=== PATIENT | female | born 2000 | race Caucasian/White ===

== ENCOUNTER 2021-06-22 19:41 | Outpatient (REF) | payer MEDICAID, SELFPAY ==
[2021-06-24 15:00] LABS: Chlamydia Result Negative (Negative); GC Result Negative (Negative)
== END 2021-06-22 19:42 | disposition home or self-care (01) ==
LOC: LBN 19:41
PROVIDERS: Visit Provider Physician Assistant
DX: N89.8 Other specified noninflammatory disorders of vagina (principal)
CPT/HCPCS: 87491; 87591; 87480; 87510; 87660

== ENCOUNTER 2021-06-22 20:12 | Emergency (ER) | payer MEDICAID, SELFPAY ==
[2021-06-22 20:21] VITALS: BP 123/69; PULSE 94; RESP 18; TEMP 37.1; O2SAT 98
--- NOTE | 2021-06-22 20:30 | DI.CT_ITS ---
Exam(s) CT ABDOMEN PELVIS W EXAM: CT ABDOMEN PELVIS W CLINICAL HISTORY: RUQ and mid right sided pain TECHNIQUE: Imaging Protocol: Axial computed tomography images with coronal and sagittal reformatted images were created and reviewed CONTRAST MATERIAL: Intravenous: Omnipaque 350 Contrast volume:94 mL Oral: No COMPARISON: No exams were available for comparison FINDINGS: ABDOMEN: Lung Bases: Normal where visualized. Liver: Normal density. No measurable mass. Portal, Superior Mesenteric, and Splenic Veins: Unremarkable. Gallbladder and Biliary Tract: The gallbladder is not distended. There is mild thickening of the wal l of the gallbladder which may be due to underdistention. No pericholecystic fluid, cholelithiasis o r biliary ductal dilatation is present. Pancreas: Normal density, no abnormal calcifications or inflammatory process. Spleen: Normal. Adrenals: No masses seen. Kidneys: Normal size, contour and axis. No radiodense stones or obstructive uropathy. No masses seen. Abdominal Aorta: Abdominal portion non-dilated. Bowel: No obstruction or bowel wall thickening. No evidence of acute appendicitis. Peritoneal Cavity: No ascites, collection or mesenteric inflammatory response. No free air. Lymph Nodes: Within normal limits. Bones: Within normal limits for the patient's age. Soft Tissues: Unremarkable. PELVIS: Bladder: Symmetric distention, no gross wall thickening. Reproductive Organs: There is an IUD in position within the uterus. Lymph Nodes: Within normal limits. Bones: Within normal limits for the patient's age. IMPRESSION: 1. No evidence of acute appendicitis. 2. Mild gallbladder wall thickening. This may be due to underdistention. No evidence of cholelithia sis, biliary ductal dilatation or pericholecystic fluid. If there is concern for gallbladder patholo gy such as cholecystitis, gallbladder ultrasound should be obtained. RADIATION DOSE DELIVERED: 638.6mGy.cm Total DLP DATA REPOSITORY: All CT scans at this facility are submitted to the National Radiology Data Registry (NRDR) Dose Index Registry (DIR) with the [employer] ([employer]). RADIATION OPTIMIZATION: All CT scans at this facility use at least one of these dose optimization te chniques: automated exposure control; mA and/or kV adjustment per patient size (includes targeted exa ms where dose is matched to clinical indication); or iterative reconstruction.
--- NOTE | 2021-06-22 20:31 | ED.GENADUL_ITS ---
Discharge Plan Disposition Patient Disposition: HOME Condition: Stable Discharge Details Clinical Impression: Right sided abdominal pain, Nausea Primary Care Provider: Unknown,Unknown ED Provider: Afsaneh Delgado Home Meds and New Rx's Prescriptions: New ondansetron 4 mg tablet,disintegrating 4 mg PO Q6H PRN (Reason: nausea and vomiting) Qty: 10 0RF Continued venlafaxine 150 mg capsule,extended release 24hr 150 mg PO DAILY 0RF divalproex 125 mg tablet,delayed release (DR/EC) 125 mg PO TID 0RF hydroxyzine HCl 10 mg tablet 10 mg PO QHS 0RF cholecalciferol (vitamin D3) 1,250 mcg (50,000 unit) tablet 1,250 mcg PO QWEEK 0RF No Action magnesium citrate Solution 150 ml PO ONCE Qty: 296 0RF Rx Instructions: as a single dose bisacodyl [Dulcolax (bisacodyl)] 10 mg suppository 10 mg OR DAILY PRN (Reason: constipation) Qty: 12 0RF Rx Instructions: Insert 1 suppository into rectum daily as needed for constipation famotidine [Pepcid] 20 mg tablet 20 mg PO DAILY Qty: 14 0RF Discharge Instructions Instructions: Ondansetron (By mouth), Acute Nausea and Vomiting (ED), Abdominal Pain (ED) Additional Instructions: Your labs and imaging are reassuring here today. As we discussed, your gallbladder wall appears slightly thickened which may be associated with when you ate having some contraction. I would like you to have an outpatient ultrasound for further evaluation. Please encourage hydration. Tylenol and ibuprofen as needed for discomfort. You may use the Zofran as prescribed if you have any recurrence of your nausea or vomiting. If you develop fever/chills, increased pain, inability stay hydrated or other new/worsening symptoms care urgently once again. Otherwise, please follow-up with your primary care in the next 1 to 2 weeks for reevaluation. Discharge Data Discharge Date/Time-TO BE ENTERED AT DEPARTURE: 06/22/21 22:20 Medical Decision Making Patient is a pleasant 21-year-old female presents today with chief complaint of right-sided abdominal pain. Patient reports that she has an IUD in place. Often has breakthrough bleeding. States that she had 2 weeks of menses that ended a few days ago. States that during that time paravesicular towards the end, she did enlarged but question of tissue burden in the menstrual discharge. She states she is taken multiple tests all of which were negative. Patient is sexually active, is not using any condoms. States that yesterday she had some 10 curlers vaginal discharge which is since subsided. Reports that today she began having abdominal discomfort, indicates the right upper quadrant is area of maximal discomfort. States that she has some nausea, no vomiting. No change in bowel or bladder habits. Denies any fevers or chills. No radiation of pain. Past surgical history is pertinent for exploratory laparotomy questioning possible endometriosis, she denies diagnosis of endometriosis being made. Prior to arrival, patient was seen in urgent care. I did take report from Monica Moore PA-C. She reports that she did perform pelvic exam, patient was negative for chandelier sign. She reported she did note a knox-red cervix patient states is baseline for her. There was concern for possible STI exposure, swabs for the have been sent. BOBBY Moore was concerned with the patient's right upper quadrant pain. They discussed ultrasound tomorrow versus evaluation to the ED patient came in for further evaluation and imaging. On exam, patient appears nontoxic. Vital stable. Lungs are clear, normal cardiac exam. No CVA tenderness. Patient does have a rash on her trunk which is previously diagnosed as pityriasis rosea. Patient does have some right upper quadrant discomfort. However, no peritoneal findings guarding or rebound tenderness. No pain along the lower abdomen. As patient had a vaginal exam today and is no longer have any vaginal complaints, do not feel that repeat is necessary at this time. Her STI screening is pending. Consider potential Caal status. Ultrasounds not available at this time we will move forward CT scan. Also obtain baseline lab. There is anemia infection. Will give Zofran to help with her nausea. Labs reviewed. No leukocytosis. Stable H&H. CMP without significant abnormality. Lipase within normal limits. Urinalysis shows trace blood. Leukocyte esterase negative. She is endorsing any dysuria, increased frequency or urgency. As there was moderate amount of bacteria, this did resolve the culture. On questioning if this could be contamination we will hold off on treatment at this time. . FINDINGS: Liver: Normal. No mass. Gallbladder and bile ducts: The gallbladder appears small with a mildly thickened wall. No pericholecystic fluid is seen. No calcified stones. No ductal dilation. Pancreas: Normal. No ductal dilation. Spleen: Normal. No splenomegaly. Adrenal glands: Normal. No mass. Kidneys and ureters: Normal. No hydronephrosis. Stomach and bowel: Unremarkable. No obstruction. No mucosal thickening. Appendix: No evidence of appendicitis. Intraperitoneal space: Unremarkable. No free air. No significant fluid collection. Vasculature: Unremarkable. No abdominal aortic aneurysm. Lymph nodes: Unremarkable. No enlarged lymph nodes. Urinary bladder: Unremarkable as visualized. Reproductive: The uterus is anteverted and contains an IUD. No adnexal masses are seen. Bones/joints: Unremarkable. No acute fracture. Soft tissues: Unremarkable. IMPRESSION: 1. Gallbladder wall thickening which may be artifactual due to lack of distention. However, chronic cholecystitis cannot be excluded. Gallbladder ultrasound while fasting is recommended. 2. An IUD is present. Discussed findings with the patient. Advised outpatient US. Encouraged hydrsation. Her STI testing was obtained at urgent care and are pending. She will be prescribed zofran for recurrence of her N/V. Advised APAP or NSAID for discomfrot. Return precautions discussed. Advised f/u with PCP. As she does not have one, she will come here for results after her US. All of her questions and concerns were addressed, she is in agreemnt with this plan. HPI General Date/Time Provider Initiated Documentation: 06/22/21 20:13 . Limitations to Documentation: no limitations . Information obtained by: patient, RN/MD (received report from BOBBY Bose prior to arrival) and RN notes reviewed . History of Present Illness 21 year old F presents to the emergency department with the chief complaint of right upper quadrant pain, described as severe, with intensity rated at 8. Quality is described as aching, and is localized to the abdomen. Patient reports no radiation. Patient started experiencing this hour(s) (began this morning) and it has been constant. improves with No relieving factors improve symptom(s), No exacerbating factors reported . Patient notes nausea/vomiting (nausea, no vomiting) and rash (known pityriasis rosea); denies chest pain, cough, fever/chills, loss of appetite and shortness of breath. Patient did receive the following treatments prior to arrival, none Related Data Home Medications Medication Instructions Recorded Confirmed cholecalciferol (vitamin D3) 1,250 1,250 mcg PO QWEEK 06/22/21 06/23/21 mcg (50,000 unit) tablet divalproex 125 mg tablet,delayed 125 mg PO TID 06/22/21 06/23/21 release hydroxyzine HCl 10 mg tablet 10 mg PO QHS 06/22/21 06/23/21 ondansetron 4 mg disintegrating 4 mg PO Q6H PRN #10 tab 06/22/21 06/23/21 tablet venlafaxine 150 mg 150 mg PO DAILY 06/22/21 06/23/21 capsule,extended release 24 hr famotidine 20 mg tablet (Pepcid) 20 mg PO DAILY #14 tab 06/23/21 bisacodyl 10 mg rectal suppository 10 mg OR DAILY PRN #12 ea 06/26/21 06/26/21 (Dulcolax (bisacodyl)) magnesium citrate 150 ml PO ONCE #296 ml 06/26/21 06/26/21 Previous Rx's Medication Instructions Recorded ondansetron 4 mg disintegrating 4 mg PO Q6H PRN #10 tab 06/22/21 tablet famotidine 20 mg tablet (Pepcid) 20 mg PO DAILY #14 tab 06/23/21 bisacodyl 10 mg rectal suppository 10 mg OR DAILY PRN #12 ea 06/26/21 (Dulcolax (bisacodyl)) magnesium citrate 150 ml PO ONCE #296 ml 06/26/21 Allergies Allergy/AdvReac Type Severity Reaction Status Date / Time morphine Allergy Mild Verified 06/26/21 10:12 marijuana AdvReac Mild Unverified 06/26/21 10:12 General Stated Complaint: Abd Prob SO: 3 Review of Systems Constitutional Constitutional: Reports as per HPI, Denies chills, Denies fatigue, Denies fever(s) and Denies headache(s) ENT Ears, Nose, Mouth, and Throat: Denies headache(s) Cardiovascular Cardiovascular: Reports as per HPI, Denies chest pain and Denies dyspnea Respiratory Respiratory: Reports as per HPI, Denies cough and Denies dyspnea Gastrointestinal Gastrointestinal: Reports as per HPI Genitourinary Genitourinary: Reports as per HPI Musculoskeletal Musculoskeletal: Reports as per HPI and Denies back pain Integumentary/Breasts Skin/Breast: Reports as per HPI and Reports rash Neurologic Neurologic: Reports as per HPI and Denies headache(s) Endocrine Endocrine: Denies fatigue PFSH All Active Problems (Updated 06/23/21 @ 17:38 by Brenda Avelar DO) Right sided abdominal pain (Acute) Nausea (Acute) Abdominal pain (Acute) Nausea (Acute) Medical History (Updated 06/23/21 @ 17:38 by Brenda Avelar DO) Borderline personality disorder Surgical History (Updated 06/23/21 @ 17:38 by Brenda Avelar DO) H/O laparoscopy History of tonsillectomy Social History Smoking/Tobacco Use Status: Current every day Tobacco Type: e-cigarettes Smoking risk assessment performed?: Yes Drug use: Never Substance use type: does not use Do you feel safe at home: Yes Do you feel safe in your relationship?: Yes Exam Const General: cooperative, healthy appearing, comfortable, no acute distress and well developed Nutritional Appearance: average body habitus and well nourished Orientation: alert and awake HENMT Head: normal to inspection Mouth: moist mucous membranes Resp Effort & Inspection: normal respiratory effort, able to speak in complete sentences and no respiratory distress Auscultation: clear to auscultation bilaterally, no rales, no rhonchi and no wheezes Cardio Rate: regular rate Rhythm: regular rhythm Heart Sounds: S1 normal and S2 normal GI Inspection: normal to inspection (pityriasis rosea rash), no abdominal wall ecchymosis and non-distended Palpation: soft, no hepatosplenomegaly, not firm, no guarding, no hernias, no masses, not rigid and tender in the RUQ; Negative for not at McBurney's point, Grfifiths's sign negative and with no rebound tenderness Percussion: normal to percussion Auscultation: normal bowel sounds Back/Spine/Pelvis Back: no CVA tenderness Other: pityriasis rosea rash Skin Rashes: rashes noted (scattered light pink raised rash on trunk, herald patch noted) Neuro General: patient alert and patient awake Cognition: normal cognition Speech: speech normal Gait: normal gait Psych Appearance: grossly normal and well kempt Mental Status: mental status grossly normal Speech and Movement: speech and movement normal Course Vital Signs Vital signs: Vital Signs Temperature 37.1 C 06/22/21 20:21 Pulse 94 H 06/22/21 20:21 Respiratory Rate 18 06/22/21 20:21 Blood Pressure 123/69 06/22/21 20:21 Pulse Oximetry 98 06/22/21 20:21 Temperature 37.1 C 06/22/21 20:21 Temperature Source Skin 06/22/21 20:21 Pulse 94 H 06/22/21 20:21 Respiratory Rate 18 06/22/21 20:21 Respiratory Effort 06/22/21 20:25 Blood Pressure 123/69 06/22/21 20:21 Blood Pressure Position Sitting 06/22/21 20:21 Pulse Oximetry 98 06/22/21 20:21 Oxygen Delivery Method Room Air 06/22/21 20:21 Oxygen Flow Rate 0 06/22/21 20:21 Pain Level 8 06/22/21 20:21
[2021-06-22] MEDS: Ondansetron 4 MG/2 ML VIAL IVP (20:53)
[2021-06-22] MEDS: Normal Saline 1,000 ML 1000 ML IV (20:53)
[2021-06-22 21:03] LABS: Abs Immature Grans 0.02 10^3/uL (0.0-0.06); Absolute Basophil Count 0.05 10^3/uL (0.0-0.2); Absolute Eosinophil Count 0.43 10^3/uL (0.0-0.7); Absolute Lymphocyte Count 3.94 10^3/uL (1.2-3.4); Absolute Neutrophil Count 5.41 10^3/uL (1.2-6.7); Basophils % 0.5; HCT 38.1 % (36.0-46.0); HGB 12.7 g/dL (11.2-15.7); Immature Grans % 0.2; Lymphocytes % 36.7; MCH 31.4 pg (27.0-33.0); MCHC 33.3 % (32.0-36.0); MCV 94.1 fL (80-95); MPV 9.7 fL (8.0-11.0); Monocytes % 8.4; Neutrophils % 50.2; Nucleated RBC 0 %; Platelet Count 303 10^3/uL (130-400); RBC 4.05 10^6/uL (3.93-5.22); RDW 12.1 % (11.7-14.6); RDW-SD 42.2 fL; WBC 10.75 10^3/uL (4.4-10.8)
[2021-06-22 21:04] LABS: Bilirubin Negative (Negative); Blood Trace-intact (Negative); Clarity Clear (Clear); Glucose Negative (Negative); Ketones Negative (Negative); Leukocyte Esterase Negative (Negative); Nitrite Negative (Negative); Specific Gravity 1.025 (1.005-1.025); Urobilinogen 0.2 EU/dL (Up TO 0.2); pH 7.5 (5-8)
[2021-06-22 21:10] LABS: Bacteria Moderate HPF (Negative); C & S Indicated? Yes; Casts Negative LPF (Negative); Crystals Negative HPF (Negative); Epithelial Cells Few HPF (Negative); Mucus Trace (Negative); RBC 0-2 HPF (0-2); WBC 0-2 HPF (0-5)
[2021-06-22 21:13] LABS: ALT 17 U/L (14-59); AST 17 U/L (15-37); Albumin 3.8 g/dL (3.4-5.0); Alkaline Phosphatase 90 U/L (46-116); Anion Gap 5.5 mmol/L (3-11); BUN 17 mg/dL (7-18); Bilirubin, Total 0.2 mg/dL (0.2-1.0); CO2 28.5 mmol/L (21.0-32.0); CREATININE 0.8 mg/dL (0.55-1.02); Calcium 8.4 mg/dL (8.5-10.1); Chloride 107 mmol/L (98-107); Glucose 83 mg/dL (74-106); Lipase 86 U/L (73-393); Magnesium 1.9 mg/dL (1.8-2.4); Potassium 3.7 mmol/L (3.5-5.1); Sodium 141 mmol/L (136-145); Total Protein 7.5 g/dL (6.4-8.2)
[2021-06-22] MEDS: Omnipaque 350 MG/ML 100 ML BTL IJ (21:14)
[2021-06-22] MEDS: Normal Saline Flush 10 ML SYR IVP (21:17)
--- NOTE | 2021-06-22 21:58 | DI.VRAD_ITS ---
PROCEDURE INFORMATION: Exam: CT Abdomen And Pelvis With Contrast Exam date and time: 06/22/2021 9:14 PM Age: 21 years old Clinical indication: Abdominal pain; Localized; Right upper quadrant (ruq); Patient HX: Ruq and mid right sided pain TECHNIQUE: Imaging protocol: Computed tomography of the abdomen and pelvis with contrast. Radiation optimization: All CT scans at this facility use at least one of these dose optimization techniques: automated exposure control; mA and/or kV adjustment per patient size (includes targeted exams where dose is matched to clinical indication); or iterative reconstruction. Contrast material: OMNIPAQUE 350; Contrast volume: 94 ml; Contrast route: INTRAVENOUS (IV); COMPARISON: No relevant prior studies available. FINDINGS: Liver: Normal. No mass. Gallbladder and bile ducts: The gallbladder appears small with a mildly thickened wall. No pericholecystic fluid is seen. No calcified stones. No ductal dilation. Pancreas: Normal. No ductal dilation. Spleen: Normal. No splenomegaly. Adrenal glands: Normal. No mass. Kidneys and ureters: Normal. No hydronephrosis. Stomach and bowel: Unremarkable. No obstruction. No mucosal thickening. Appendix: No evidence of appendicitis. Intraperitoneal space: Unremarkable. No free air. No significant fluid collection. Vasculature: Unremarkable. No abdominal aortic aneurysm. Lymph nodes: Unremarkable. No enlarged lymph nodes. Urinary bladder: Unremarkable as visualized. Reproductive: The uterus is anteverted and contains an IUD. No adnexal masses are seen. Bones/joints: Unremarkable. No acute fracture. Soft tissues: Unremarkable. IMPRESSION: 1. Gallbladder wall thickening which may be artifactual due to lack of distention. However, chronic cholecystitis cannot be excluded. Gallbladder ultrasound while fasting is recommended. 2. An IUD is present. Dictated and Authenticated by: Eddie Pan MD. Ordering:TAIWO Shelby MD
[2021-06-22 22:19] VITALS: BP 99/56; PULSE 85; RESP 18; O2SAT 98
== END 2021-06-22 22:20 | disposition home or self-care (01) ==
PROVIDERS: Emergency Provider Physician Assistant
DX: R10.11 Right upper quadrant pain (principal); R10.31 Right lower quadrant pain; R11.0 Nausea; Z20.2 Contact with and (suspected) exposure to infections with a predominantly sexual mode of transmission; Z97.5 Presence of (intrauterine) contraceptive device
CPT/HCPCS: 36415; 80053; 81025; 83690; 96361; 96374; 99285; 74177; 81003; 81015; 83735; 85025; 87086; 99284; J2405; J3490

== ENCOUNTER → 2021-06-23 12:05 | Outpatient (CLI) | payer MEDICAID, SELFPAY ==
--- NOTE | 2021-06-23 | DI.US_ITS ---
Exam(s) US ABDOMEN LIMITED EXAM: US ABDOMEN LIMITED CLINICAL HISTORY: RUQ PAIN, GALL BLADDER WALL THICKENING TECHNIQUE: Ultrasound abdomen performed using standard protocol. COMPARISON: No exams were available for comparison FINDINGS: PANCREAS: Normal where visualized. LIVER: Normal. Hepatopedal flow in the Portal Vein. The liver measures in 14.7 length. GALLBLADDER: No evidence of cholelithiasis. No evidence of wall thickening. No pericholecystic fluid identified. BILIARY SYSTEM: Common bile duct measures < 7 mm. No intrahepatic biliary ductal dilation. ISABEL'S SIGN: Negative. RIGHT KIDNEY: Kidney is normal in size. No evidence of renal calculi. No evidence of hydronephrosis. No renal mass or cyst identified. ASCITES: None seen. ABDOMINAL AORTA AND IVC: Visualized portions normal caliber. IMPRESSION: 1. Normal sonographic appearance of the upper abdomen. 2. Results of this exam have been verbally communicated with the emergency department. DATA REPOSITORY:
== END ==
PROVIDERS: Visit Provider Physician Assistant
DX: R10.11 Right upper quadrant pain (principal); K82.8 Other specified diseases of gallbladder
CPT/HCPCS: 76705

== ENCOUNTER 2021-06-23 14:34 | Emergency (ER) | payer MEDICAID, SELFPAY ==
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
[2021-06-23 14:53] VITALS: BP 116/76; PULSE 88; RESP 16; TEMP 36.2; O2SAT 98
[2021-06-23 15:36] LABS: Bilirubin Negative (Negative); Blood Negative (Negative); Clarity Clear (Clear); Glucose Negative (Negative); Ketones Negative (Negative); Leukocyte Esterase Negative (Negative); Nitrite Negative (Negative); Urobilinogen 0.2 EU/dL (Up TO 0.2)
[2021-06-23] MEDS: Normal Saline 1,000 ML 1000 ML IV (15:55)
[2021-06-23] MEDS: Ketorolac 30 MG/ML VIAL IVP (15:55)
[2021-06-23] MEDS: Famotidine 20 MG/2 ML VIAL IVP (15:57)
[2021-06-23 16:00] LABS: Absolute Basophil Count 0.04 10^3/uL (0.0-0.2); Absolute Eosinophil Count 0.16 10^3/uL (0.0-0.7); Absolute Lymphocyte Count 2.72 10^3/uL (1.2-3.4); Absolute Monocyte Count 0.47 10^3/uL (0.1-0.8); Absolute Neutrophil Count 3.12 10^3/uL (1.2-6.7); Basophils % 0.6; Eosinophils % 2.5; HCT 38.5 % (36.0-46.0); Lymphocytes % 41.8; MCH 31.6 pg (27.0-33.0); MCHC 33.8 % (32.0-36.0); MCV 93.4 fL (80-95); MPV 9.5 fL (8.0-11.0); Monocytes % 7.2; Neutrophils % 47.9; Nucleated RBC 0 %; Platelet Count 298 10^3/uL (130-400); RBC 4.12 10^6/uL (3.93-5.22); RDW 11.9 % (11.7-14.6); RDW-SD 41.1 fL; WBC 6.51 10^3/uL (4.4-10.8)
[2021-06-23 16:27] VITALS: BP 127/80; PULSE 83; RESP 16; TEMP 36.7; O2SAT 98
[2021-06-23 17:04] LABS: ALT 19 U/L (14-59); AST 21 U/L (15-37); Albumin 4.1 g/dL (3.4-5.0); Alkaline Phosphatase 96 U/L (46-116); BUN 8 mg/dL (7-18); Bilirubin, Total 0.5 mg/dL (0.2-1.0); CREATININE 0.8 mg/dL (0.55-1.02); Calcium 8.8 mg/dL (8.5-10.1); Chloride 104 mmol/L (98-107); Glucose 88 mg/dL (74-106); Lipase 69 U/L (73-393); Potassium 3.8 mmol/L (3.5-5.1); Sodium 137 mmol/L (136-145); Total Protein 7.8 g/dL (6.4-8.2)
[2021-06-23 17:42] VITALS: BP 109/68; PULSE 73; RESP 16; TEMP 36.7; O2SAT 98
== END 2021-06-23 17:40 | disposition home or self-care (01) ==
PROVIDERS: Emergency Provider Physician Assistant
DX: R10.9 Unspecified abdominal pain (principal); R11.0 Nausea; R10.30 Lower abdominal pain, unspecified
CPT/HCPCS: 36415; 80053; 81025; 83690; 96361; 96365; 96366; 96375; 99284; 81003; 85025; 99283; J1885